=== PATIENT | male | born 1930 | race Caucasian/White ===

== ENCOUNTER 2017-07-15 12:24 | Outpatient (CLI) | payer MEDICARE, BC ==
[~2017-07-15] VITALS: Ht 167.6 cm; Wt 86.4 kg
--- NOTE | ~2017-07-15 | OP ---
PATIENT NAME: PIPO PRIETO MEDICAL RECORD: [id number] :[birth year] LOCATION:D.M2 D.2117 ADMISSION DATE:07/15/17 SURGEON: KEITH ROWELL MD DATE OF OPERATION: 07/15/2017 PROCEDURES: Left heart catheterization, selective coronary angiogram, right femoral artery approach. CATHETERS: A 5-Tajik sheath, 5/4 left and right Mak, 5/4 pig. The procedure was well tolerated and the patient was returned to worrell. Sheath was removed. ExoSeal device placed. Left ventriculography in 30-degree PAREDES view. Normal wall motion. Normal systolic function. CORONARY ANATOMY: LEFT MAIN: Left main is free of disease. LAD: Free of disease in the diagonal system. CIRCUMFLEX: Circumflex has one moderate-sized OM. 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 RIGHT CORONARY ARTERY: Right dominant system, free of disease. IMPRESSION AND PLAN: Intervention to the circumflex OM momentarily. The 5-Tajik sheath was exchanged for a 6-Tajik sheath. JL4 guiding catheter provided good guide catheter support followed by 300-cm Whisper wire was placed across the 90% plus stenosed OM down this portion of vessel. Stent deployed was a 2.5-mm Integrity nondrug-eluting stent up to 14 atmospheres for 45 seconds. Final injection shows excellent resolution of 90% stenosis. No significant residual. LINA flow was 3 throughout the procedure. Integrilin was used during the case. Sheath was closed with ExoSeal device. TRANSINT:[id number] Voice Confirmation ID: [id number] DOCUMENT ID: [id number] KEITH ROWELL MD at 0804 CC: [id number] DICTATION DATE: 07/15/17 1603 SOLDERING MACHINE OPERATOR AUTOMATIC: 07/15/17 1740 ADM IN [place] [address] [place] [address]
--- NOTE | ~2017-07-15 | HEMODYNAMI ---
PATIENT:PIPO PRIETO MEDICAL RECORD: [id number] : [birth year] LOCATION:[facility] D.2117 ADMISSION DATE: 07/15/17 Generatedon:07/15/201716:00 Patient name: PIPO PRIETO Patient #: [id number] SSN: : Date of study: 07/15/2017 Page: Of Hemodynamic Procedure Report Patient Data Patient Demographics Procedure consent was obtained First Name: PIPO Gender: Male Last Name: CONNER : 1930 Patient #: [id number] Age: 86 year(s) Race: Unknown Additional ID: [id number] Contact details Address: [address] [place] [address] [facility] State: [place] City: [place] Zip code: [address] Admission Admission Data Admission Date: 07/15/2017 Admission Time: 12:24 Room #: D.2117 Lab Results Lab Result Date: 07/15/2017 Lab Result Time: 0:00 Biochemistry Name Units Result Min Max BUN mg/dl 21 --(----)-* 7 18 Creatinine mg/dl 1 --(--*-)-- 0.6 1.3 CBC Name Units Result Min Max Hemoglobin g/dl 13.7 --(*---)-- 13.5 17.5 Procedure Procedure Types Cath Procedure Diagnostic Procedure [facility] w/Coronaries Sedation Charges Moderate Sedation up to 45 minutes PCI Procedure Coronary Stent Coronary Stent Initial Procedure Description Procedure Date Procedure Date: 07/15/2017 Procedure Start Time: 15:33 Procedure End Time: 15:52 Procedure Staff Name Function Otf Murguia MD Performing Physician Kirti Tai RT Monitor Nicolasa Goff RT Scrub Peter Crawford RN Nurse Procedure Data Cath Procedure Fluoroscopy Diagnostic fluoroscopy Total fluoroscopy Time: 4 time: 4 min min Diagnostic fluoroscopy Total fluoroscopy dose: 841 dose: 841 mGy mGy Contrast Material Contrast Material Type Amount (ml) Isovue 300 75 Entry Location Entry Primary Successful Side Size Upsize Upsize Entry Closure Succes sful Closure Location (Fr) 1 (Fr) 2 (Fr) Remarks Device Remarks Femoral Right 5 Fr 6 Fr Exoseal artery Short Estimated blood loss: 5 ml Diagnostic catheters Device Type Used For End Catheter Placement MULTIPACK JL 4.0 5Fr Left Coronary catheter Angiography MULTIPACK 3DRC 5Fr Right Coronary catheter Angiography MULTIPACK Pigtail 5 Fr LV Angiography catheter Procedure Complications No complications Procedure Medications Medication Administration Route Dosage Oxygen etCO2 Nasal cannula 2 l/min Heparin Flush Bag added to field 2 bags (1000units/500ml NS) 0.9% NaCl I.V. 100 ml/hr Fentanyl I.V. 50 mcg Versed I.V. 1 mg Fentanyl I.V. 50 mcg Versed I.V. 1 mg Fentanyl I.V. 50 mcg Versed I.V. 1 mg Fentanyl I.V. 50 mcg Versed I.V. 1 mg Fentanyl I.V. 50 mcg Heparin Bolus I.V. 4000 units Integrilin (Bolus I.V. 7.9 ml 2mg/ml) Fentanyl I.V. 50 mcg Integrilin (Bolus wasted 2.1 ml 2mg/ml) Plavix P.O. 600 mg Hemodynamics Rest HGB: 13.7 (g/dl) Heart Rate: 77 (bpm) Pressure Samples Time Site Value (mmHg) Purpose Heart Use Rate(bpm) 15:42 LV 101/-23,-3 Snapshot 84 15:42 AO 146/76(104) Pullback 85 15:42 LV 136/21,25 Pullback 85 Gradients Valve Time Site 1 Site 2 Mean SEP/DFP Peak To Heart Use (mmHg) (sec/min) Peak Rate (mmHg) (bpm) Aortic 15:42 LV AO 0 4 0 85 136/21,25 146/76(104) Calculations Valve P-P Mean Valve Index Valve Source Name Gradient Area Flow (cm2) Aortic 0 0 0 0 Snapshots Pre Cath Intra NCS Post Cath Vital Signs Time Heart Resp SPO2 etCO2 NIBP (mmHg) Rhythm Pain Sedation Rate (ipm) (%) (mmHg) Status Level (bpm) 14:07:15 75 17 98 0 150/87(120) NSR 0 (11) 10(A) , No pain 14:11:37 79 16 97 0 151/86(126) NSR 0 (11) 10(A) , No pain 14:15:57 75 18 97 0 160/93(122) NSR 0 (11) 10(A) , No pain 14:20:17 84 18 97 0 167/91(139) NSR 0 (11) 10(A) , No pain 14:24:39 90 16 97 0 166/102(135) NSR 0 (11) 10(A) , No pain 14:29:01 82 18 98 0 168/98(143) NSR 0 () 10(A) , No pain 14:33:19 84 16 98 0 166/98(136) NSR 0 () 10(A) , No pain 14:37:39 79 17 97 0 165/96(135) NSR 0 () 10(A) , No pain 14:41:58 84 17 91 0 142/85(117) NSR 0 () 10(A) , No pain 14:46:11 86 17 91 0 120/69(106) NSR 0 () 10(A) , No pain 14:50:24 87 16 93 0 131/71(109) NSR 0 () 10(A) , No pain 14:54:37 84 16 94 0 144/78(115) NSR 0 () 9(A) , No pain 14:58:54 88 16 94 0 134/78(109) NSR 0 () 9(A) , No pain 15:03:07 84 15 94 0 144/79(124) NSR 0 (11) 9(A) , No pain 15:07:19 80 15 95 0 137/84(111) NSR 0 () 9(A) , No pain 15:11:35 84 17 95 0 138/78(105) NSR 0 (11) 9(A) , No pain 15:15:53 77 15 95 0 151/72(118) NSR 0 (11) 9(A) , No pain 15:20:03 82 16 94 0 109/60(83) NSR 0 (11) 9(A) , No pain 15:24:07 88 16 94 0 118/81(96) NSR 0 (11) 9(A) , No pain 15:28:15 81 16 96 0 132/80(109) NSR 0 (11) 9(A) , No pain 15:32:27 79 16 96 0 141/84(113) NSR 0 (11) 9(A) , No pain 15:36:43 79 16 96 0 151/77(126) NSR 0 (11) 9(A) , No pain 15:40:55 84 16 97 0 133/77(114) NSR 0 (11) 9(A) , No pain 15:45:07 81 17 95 0 120/69(101) NSR 0 (11) 9(A) , No pain 15:49:19 88 17 89 0 102/59(85) NSR 0 (11) 9(A) , No pain Medications Time Medication Route Dose Verified Delivered Reason Notes Effectiveness by by 14:52:20 Oxygen etCO2 2 Otf Buffie Per physician Nasal l/min [facility] Casimiro Guerrier RN cannula 14:52:28 Heparin Flush added 2 Otf Buffie used for Bag to bags [facility] Casimiro Guerrier RN procedure (1000units/500ml field NS) 14:52:38 0.9% NaCl I.V. 100 Otf Hillie Per physician ml/hr [facility] Casimiro Guerrier RN, MD 14:52:51 Fentanyl I.V. 50 Otf Lizie for sedation mcg [facility] Casimiro Guerrier RN, MD 14:52:57 Versed I.V. 1 mg Otf Buffie for sedation [facility] Casimiro Guerrier RN, MD 14:54:56 Fentanyl I.V. 50 Otf Buffie for sedation mcg [facility] Casimiro Guerrier RN, MD 14:54:59 Versed I.V. 1 mg Otf Buffie for sedation [facility] Casimiro Guerrier RN, MD 15:14:47 Fentanyl I.V. 50 Otf Buffie for sedation mcg [facility] Casimiro Guerrier RN, MD 15:14:53 Versed I.V. 1 mg Otf Buffie for sedation [facility] Casimiro Guerrier RN, MD 15:25:03 Fentanyl I.V. 50 Otf Buffie for sedation mcg [facility] Casimiro Guerrier RN, MD 15:25:06 Versed I.V. 1 mg Otf Buffie for sedation [facility] Casimiro Guerrier RN, MD 15:33:34 Fentanyl I.V. 50 Otf Buffie for sedation mcg [facility] Casimiro Guerrier RN, MD 15:44:09 Heparin Bolus I.V. 4000 [address] for units [facility] Casimiro huffman MD 15:44:20 Integrilin I.V. 7.9 Otf Green for (Bolus 2mg/ml) ml [facility] Casimiro Crawford RN antiplatelet MD therapy 15:47:11 Fentanyl I.V. 50 Otf Green for sedation mcg [facility] Casimiro Crawford RN, MD 15:59:44 Integrilin wasted 2.1 Otf Green for (Bolus 2mg/ml) ml [facility] Casimiro Crawford RN antiplatelet MD therapy 15:59:53 Plavix P.O. 600 Otf Green for mg [facility] Casimiro Crawford RN antiplatelet MD therapy Procedure Log Time Note 13:40:13 Kirti Tai RT(R) sent for patient. Start room use. 13:59:14 Time tracking: Regular hours (M-F 7:00 - 5:00) 13:59:18 Plan of Care:Hemodynamics will remain stable., Cardiac rhythm will remain stable., Comfort level will be maintained., Respiratory function will remain adequate., Patient/ family verbilizes understanding of procedure., Procedure tolerated without complication., Recovers from procedure without complications.. 13:59:37 Patient received from Med II to [facility] 2 Alert and oriented. Tansferred to table in Supine position. 13:59:38 Warm blankets applied, and ezra hugger turned on for patient comfort. 13:59:39 Correct patient and procedure confirmed by team. 13:59:40 Signed procedure consent form obtained from patient. 13:59:41 ECG and BP/O2 sat monitors applied to patient. 13:59:41 Vital chart was started 13:59:43 Baseline sample Acquired. 13:59:52 Rhythm: atrial fibrillation 13:59:54 Full Disclosure recording started 14:00:07 H&P Date Dictated: 07/15/2017 New H&P dictated by physician.. 14:00:08 Pre-procedure instructions explained to patient. 14:00:09 Pre-op teaching completed and patient verbalized understanding. 14:00:10 Family in waiting room. 14:00:11 Patient NPO since Dinner. 14:00:14 Is the patient allergic to Iodine/contrast media? No. 14:00:15 Was the patient premedicated? No 14:00:17 Is patient on blood thinner?Yes 14:00:20 ACC The patient was administered the following blood thiners within the last 24 hours: Coumadin 14:00:28 Patient diabetic? No. 14:00:30 Previous problem with sedation/anesthesia? No ? 14:00:32 Snore? Yes 14:00:34 Sleep apnea? No 14:00:37 Deviated septum? No 14:00:38 Opens mouth fully? Yes 14:00:38 Sticks out tongue? Yes 14:00:40 Airway obstruction? No ? 14:00:46 Dentures? Yes in tight 14:00:57 Patient pain scale 0/10 ?. 14:01:11 IV patent on arrival in right wrist with 0.9% NaCl at [facility]. 14:01:16 Lab results completed and on chart. 14:01:23 Right groin area was prepped with chlora-prep and draped in sterile fashion 14::24 Alarms reviewed by R. N. 14::24 Sharps counted by scrub and verified by R.N. 14::54 Lab Result : BUN 21 mg/dl 14::54 Lab Result : Hemoglobin 13.7 g/dl 14:11:54 Lab Result : Creatinine 1 mg/dl 14:52:04 Physician arrived 14:52:05 --------ALL STOP TIME OUT------ 14:52:05 Final Timeout: patient, procedure, and site verified with staff and physician. All members of the team are in agreement. 14:52:07 Right groin site verified by team. 14:52:09 Physical assessment completed. ASA score P 2 - A patient with mild systemic disease as per Otf Murguia MD. 14:52:12 Sedation plan: IV Moderate Sedation Medication:Versed, Fentanyl 14:52:20 Oxygen 2 l/min etCO2 Nasal cannula was administered by Diamond Guerrier RN; Per physician; 14:52:22 Use device set Femoral Dx 14:52:23 ACIST Syringe (32792) opened to sterile field. 14:52:24 Bag Decanter (2002) opened to sterile field. 14:52:24 Medline Cath Pack ([id number]) opened to sterile field. 14:52:25 DIAGNOSTIC WIRE .035 260cm J wire (469456) opened to sterile field. 14:52:26 ACIST Hand Control (62645) opened to sterile field. 14:52:26 ACIST Manifold (59069) opened to sterile field. 14:52:27 DIAGNOSTIC Multipack 5Fr catheter set (OB0108) opened to sterile field. 14:52:28 Heparin Flush Bag (1000units/500ml NS) 2 bags added to field was administered by Diamond Guerrier RN; used for procedure; 14:52:28 Tegaderm 4 x 4 (1626W) opened to sterile field. 14:52:29 SHEATH Prelude 5Fr 0.035 ([id number]-6X-03-035) opened to sterile field. 14:52:38 0.9% NaCl 100 ml/hr I.V. was administered by Diamond Guerrier RN; Per physician; 14:52:51 Fentanyl 50 mcg I.V. was administered by Diamond Guerrier RN; for sedation; 14:52:57 Versed 1 mg I.V. was administered by Diamond Guerrier RN; for sedation; 14:54:56 Fentanyl 50 mcg I.V. was administered by Diamond Guerrier RN; for sedation; 14:54:59 Versed 1 mg I.V. was administered by Diamond Guerrier RN; for sedation; 15:14:47 Fentanyl 50 mcg I.V. was administered by Diamond Guerrier RN; for sedation; 15:14:53 Versed 1 mg I.V. was administered by Diamond Guerrier RN; for sedation; 15:25:03 Fentanyl 50 mcg I.V. was administered by Diamond Guerrier RN; for sedation; 15:25:06 Versed 1 mg I.V. was administered by Diamond Guerrier RN; for sedation; 15:33:01 Procedure started. 15:33:05 Local anesthetic to right femoral artery with Lidocaine 2% by Otf Murguia MD.INITIAL ACCESS ONLY 15:33:34 Fentanyl 50 mcg I.V. was administered by Diamond Guerrier RN; for sedation; 15:34:00 Zero performed for pressure channel P1 15:34:06 A 5 Fr sheath was inserted into the Right Femoral artery 15:34:06 Zero performed for pressure channel P1 15:35:11 A MULTIPACK JL 4.0 5Fr catheter was advanced over the wire and used for Left Coronary Angiography. 15:37:04 LCA angiography performed. 15:37:07 Injector settings: Ml/sec: 3, Volume: 6, 15:38:17 Catheter removed. 15:38:25 A MULTIPACK 3DRC 5Fr catheter was advanced over the wire and used for Right Coronary Angiography. 15:39:22 RCA angiography performed. 15:39:25 Injector settings: Ml/sec: 3, Volume: 6, 15:39:40 SHEATH 6Fr Prelude ([id number]) opened to sterile field. 15:39:52 Catheter removed. 15:40:13 GUIDE 6FR JL 4.0 catheter (OH1NB44) opened to sterile field. 15:40:13 INFLATOR Merit BasixCompak (ZE4606) opened to sterile field. 15:40:42 A MULTIPACK Pigtail 5 Fr catheter was advanced over the wire and used for LV Angiography. 15:40:55 WHISPER 300cm guide wire ([id number]) opened to sterile field. 15:42:07 LV hemodynamics recorded. 15:42:08 LV gram done using PAREDES 15:42:18 Injector settings: Ml/sec: 5, Volume: 15, 15:42:25 EF : 55 % 15:42:33 Catheter removed. 15:42:33 Proceeding to intervention. 15:43:22 Sheath upsized to a 6 Fr Short. 15:43:45 6 Fr jl 4 guide catheter was inserted over the wire 15:44:09 Heparin Bolus 4000 units I.V. was administered by Peter Crawford RN; for anticoagulation; 15:44:20 Integrilin (Bolus 2mg/ml) 7.9 ml I.V. was administered by Peter Crawford RN; for antiplatelet therapy; 15:45:13 bmw wire advanced. 15:47:11 Fentanyl 50 mcg I.V. was administered by Peter Crawford RN; for sedation; 15:48:49 Place stent Inflation Number: 1 A INTEGRITY OTW 2.25 X 12 stent ([id number]) was prepped and advanced across the 1st Ob Cyn. The stent was deployed at 14 ASHLIE for 0:30 (min:sec). 15:49:51 Inflation number: 2 The stent balloon was then re-inflated across the 1st Ob Cyn to 8 ASHLIE for 0:30 (min:sec). 15:50:24 Stent catheter was removed intact over wire. 15:50:25 Wire removed. 15:50:25 Guide catheter removed. 15:50:34 EXOSEAL 6Fr (EX600) opened to sterile field. 15:50:46 Sheath removed intact; hemostasis achieved with Exoseal to the Right Femoral artery. 15:50:47 Procedure ended.(Physican Out) 15:51:40 Fluoroscopy time 04.00 minutes. 15:51:44 Fluoroscopy dose: 841 mGy 15:51:44 Flurop Dose total: 841 15:51:48 Contrast amount:Isovue 300 75ml. 15:51:49 Sharps counted by scrub and verified by R.N. 15:51:51 Insertion/operative site no bleeding no hematoma. 15:51:54 Post-op/insertion site Right Femoral artery dressed using a 4 x 4 and Tegaderm. 15:51:57 Post right femoral artery:stable 15:51:58 Post Procedure Pulses reassessed and unchanged 15:52:01 Post procedure rhythm: unchanged. 15:52:03 Estimated blood loss: 5 ml 15:52:05 Post procedure instruction explained to patient.Patient verbalizes understanding. 15:52:05 Patient needs reinforcement of post procedure teaching. 15:52:22 Procedure type changed to Cath procedure, Diagnostic procedure, LHC, LHC w/Coronaries, Sedation Charges, Moderate Sedation up to 45 minutes, PCI procedure, Coronary Stent, Coronary Stent Initial 15:52:24 Procedure and supply charges have been captured, reviewed, submitted and are correct. 15:52:29 Procedure Complication : No complications 15:52:32 Vital chart was stopped 15:52:33 See physician's report for complete and final results. 15:52:35 Report given to Pre/Post Procedure Room. 15:52:39 Patient transfered to Pre/Post Procedure Room with Stretcher. 15:52:43 Procedure ended. 15:52:43 Full Disclosure recording stopped 15:53:04 ACC-PCI Only Patient was given prescriptions, or instructed by Otf Murguia MD to start/continue the following medications upon discharge: Plavix 15:53:06 End room use (Document Last) 15:59:44 Integrilin (Bolus 2mg/ml) 2.1 ml wasted was administered by Peter Crawford RN; for antiplatelet therapy; 15:59:53 Plavix 600 mg P.O. was administered by Peter Crawford RN; for antiplatelet therapy; Intervention Summary Intervention Notes Time ActionType Lesion and Equipment Action# Pressure Duration Attributes Used 15:48:49 Place stent 1st Ob Cyn INTEGRITY 1 14 00:30 OTW 2.25 X 12 stent ([id number]) 15:49:51 Reinflate 1st Ob Cyn INTEGRITY 2 8 00:30 stent OTW 2.25 X balloon 12 stent ([id number]) Device Usage Item Name Manufacture Quantity Catalog Number Hospital Part Current M inimal Lot# / Charge Number Stock Stock Serial# Code ACIST Syringe Acist 1 31675 242559 393407 [id number] 2 0 (10749) Medical Systems Inc Bag Decanter Microtek 1 977058 47651 943707 5 () Medical Inc. Medline Cath Cardinal 1 [id number] 160410 04818 787775 5 IntelGenX Health ([id number]) DIAGNOSTIC WIRE St Danny 1 880906 448488 945464 662860 3 0 .035 260cm J wire (886924) ACIST Hand Acist 1 32432 530223 377460 165757 5 Control (06992) Medical Systems Inc ACIST Manifold Acist 1 86562 115426 014527 446848 5 (57275) Medical Systems M[employer] Solutions DIAGNOSTIC Cardinal 1 KR0030 959864 42225 795376 3 0 Multipack 5Fr Health catheter set (XK6510) Tegaderm 4 x 4 3M 1 1626W 843235 305430 054523 5 (1626W) SHEATH Prelude Merit 1 [id number]-7E-12-035 879289 322299 294636 5 5Fr 0.035 Medical (PVP-9S-61-035) MULTIPACK JL Cardinal 1 515655 5 4.0 5Fr Health catheter MULTIPACK 3DRC Cardinal 1 563765 5 5Fr catheter Health SHEATH 6Fr Merit 1 [id number] 734712 255025 467821 5 Prelude Medical ([id number]) GUIDE 6FR JL Medtronic 1 [id number] 834019 29434 881172 1 4.0 catheter ([id number]) INFLATOR Merit Merit 1 KA0735 392967 424114 149548 1 5 [employer] Medical (PP4492) MULTIPACK Cardinal 1 526486 5 Pigtail 5 Fr Health catheter WHISPER 300cm Jernigan 1 [id number] 713138 442919 998986 5 guide wire Vascular ([id number]) INTEGRITY OTW Medtronic 1 [id number] 929387 915393 5 [id number] 2.25 X 12 stent ([id number]) EXOSEAL 6Fr Cardinal 1 EX600 368381 722475 106890 1 0 (EX600) Health Signature Audit [place] Stage Time Signature Unsigned Intra-Procedure 07/15/2017 Kirti Tai 4:00:50 PM RT(R) Signatures Monitor : Kirti Tai RT Signature : Date : Time : [place] [id number] [place] [address]
--- NOTE | ~2017-07-15 | HP ---
PATIENT: PIPO PRIETO MEDICAL RECORD: [id number] ACCOUNT: [id number] LOCATION:[facility].2116 : [birth year] ADMISSION DATE: 07/15/17 HISTORY AND PHYSICAL EXAMINATION HISTORY OF PRESENT ILLNESS: An 86-year-old gentleman with a history of chronic atrial fibrillation followed by Dr. Norman, has a history of hypertension, extremely active for age, is out actually tilling, began having also chest pressure classic for angina, found to have positive enzymes, ST-T changes inferolaterally, referred here for NSTEMI. PAST MEDICAL HISTORY: Includes: 1. History of atrial fibrillation. 2. Hypertension. 3. Dyslipidemia. 4. Hypothyroidism with replacement. ALLERGIES: None known. MEDICATIONS: Include Synthroid 75 mcg every day, Lasix 40 every day, lisinopril 10 every day, warfarin per scale. SOCIAL HISTORY: , lives outside of [place], nonsmoker. Actually works in the garden, etc despite being 86 years of age. REVIEW OF SYSTEMS: The patient reports easy bruising but reports no swollen glands. The patient reports no fever, no night sweats, no significant weight gain, no significant weight loss. No significant exercise tolerance. The patient reports no dry eyes, no irritation, no vision change. Patient reports no difficulty hearing and no ear pain. Patient reports no frequent nose bleeds or nose and sinus problems. Patient reports on arm pain on exertion. No shortness of breath while lying down. No history of heart murmur. Patient reports no cough, no wheezing or coughing up blood. Patient reports no abdominal pain, no vomiting. Normal appetite. No diarrhea and not vomiting blood. No nausea and no constipation. Patient reports no incontinence. No difficulty urinating. No hematuria. No increased frequency. Patient reports no muscle aches. No weakness, no arthralgias, no back pain. No swelling of the extremities. Patient reports no abnormal mole, no jaundice, no rashes. Reports no loss of consciousness. No weakness and no numbness. No seizures, dizziness, or headaches. The patient reports no depression, no sleep disturbance, feeling safe in a relationship and no alcohol abuse. Patient reports on fatigue. Reports no runny nose or sinus pressure. No itching, no hives, and no frequent sneezing. PHYSICAL EXAMINATION: GENERAL: Pleasant gentleman in no acute distress. VITAL SIGNS: Pulse 78 and regular, blood pressure 127/64. HEENT: Normocephalic, atraumatic. NECK: No bruits noted. HEART: Irregular, rate is controlled, a II/ systolic ejection murmur. LUNGS: Good air excursion. ABDOMEN: Soft, nontender. EXTREMITIES: Pulses 2+ with no edema. DIAGNOSTIC DATA: ECG shows nonspecific ST-T changes inferiorly. HISTORY AND PHYSICAL [id number] PIPO PRIETO IMPRESSION: NSTEMI, atrial fibrillation. PLAN: For angiography, intervention based on the above. TRANSINT:[id number] Voice Confirmation ID: [id number] DOCUMENT ID: [id number] KEITH ROWELL MD at 0804 CC: [id number] DICTATION DATE: 07/15/17 1307 DIRECT CASTING OPERATOR: 07/15/17 1325 ADM IN [place] [address] [place] [address]
--- NOTE | ~2017-07-15 | DS ---
PATIENT:PIPO PRIETO :[birth year] MEDICAL RECORD: [id number] DISCHARGE SUMMARY ADMISSION DATE: 07/15/17 DISCHARGE DATE: 07/16/17 DATE OF ADMISSION: 07/15/2017. DATE OF DISCHARGE: 07/16/2017. PROBLEM LIST: 1. Non-ST elevation myocardial infarction. 2. Hypertension. 3. Atrial fibrillation, chronic, on Coumadin CVA prophylaxis. BRIEF HISTORY AND HOSPITAL COURSE: Transferred from [place], non-ST elevation myocardial infarction, found to have isolated circ disease, underwent stenting, did well. Discharged home in good condition. ACTIVITY: As tolerated. DIET: AHA diet. Plavix for a month. We restarted his Coumadin at his regular dose. See him back in the office in a month for followup. TRANSINT:[id number] Voice Confirmation ID: [id number] DOCUMENT ID: [id number] KEITH ROWELL MD at 1214 CC: [id number] DICTATION DATE: 07/16/17 0831 TOOL PLANNER: 07/16/17 1419 DEP CLI 07/16/17 [place] [address] [place] [address]
[2017-07-15 12:43] VITALS: BP 168/79; Ht 167.6 cm; Wt 86.4 kg
[2017-07-15] MEDS ORDERED: COUMADIN5 MG PO (12:47)
[2017-07-15] MEDS ORDERED: LISINOPRIL10 MG PO (12:48)
[2017-07-15] MEDS ORDERED: COUMADIN2.5 MG PO (12:48)
[2017-07-15] MEDS ORDERED: K-DUR20 MEQ PO (12:49)
[2017-07-15] MEDS ORDERED: SYNTHROID75 MCG PO (12:49)
[2017-07-15] MEDS ORDERED: LASIX40 MG PO (12:49)
[2017-07-15] MEDS ORDERED: MULTIPLE VITAMI1 TA1 PO (12:50)
[2017-07-15] MEDS ORDERED: ULTRAM50 MG PO (12:51)
[2017-07-15 16:44] VITALS: BP 158/77
[2017-07-15 17:27] LABS: BASOPHILS 0.7 % (0-2); EOSINOPHILS 3.3 % (0-7); HEMATOCRIT 36.4 % (42.0-54.0); IMMATURE GRANULOCYTES 0.2 % (0-5); LYMPHOCYTES 28.1 % (15-50); MCH 31.3 pg (26.0-34.0); MCV 94.8 fL (80.0-100.0); MEAN PLATELET VOLUME 11.4 fL (7.4-10.4); MONOCYTES 8.5 % (2-11); NEUTROPHILS 59.2 % (40-80); PLATELET COUNT 137 10x3/uL (130-400); RBC 3.84 10x6/uL (4.20-6.10); RDW 13.9 % (11.5-14.5); WBC 5.5 10x3/uL (4.8-10.8)
[2017-07-15 17:46] LABS: CALC OSMOLALITY 279 mosm/kg (275-300); CALCIUM 8.1 mg/dL (8.5-10.1); CHLORIDE - SERUM 108 mmol/L (98-107); CREATININE - SERUM 0.8 mg/dL (0.6-1.3); GLUCOSE 102 mg/dL (74-106); POTASSIUM - SERUM 4.1 mmol/L (3.5-5.1); SODIUM 139 mmol/L (136-145); UREA NITROGEN 17 mg/dL (7-18); eGFR NON AFRICAN AMERICAN > 90 mL/min (90-120)
[2017-07-15 17:52] LABS: CARBON DIOXIDE 20.2 mmol/L (21.0-32.0)
[2017-07-15 21:06] VITALS: BP 151/81
[2017-07-16 01:46] VITALS: BP 148/71
[2017-07-16 05:40] VITALS: BP 175/86
[2017-07-16 08:33] VITALS: BP 159/78
[2017-07-16] MEDS ORDERED: PLAVIX75 MG PO (08:59)
== END 2017-07-16 09:54 | disposition home or self-care (01) ==
LOC: OBSVTIME → D.M2 12:24 → D.CATH 12:24 → D.M2 12:24 → OBSVTIME 12:24 → D.CATH 07-16 09:54 → D.M2 07-16 09:54
PROVIDERS: Internal Medicine Interventional Cardiology
DX: I21.4 Non-ST elevation (NSTEMI) myocardial infarction (principal); I48.2 Chronic atrial fibrillation; I10 Essential (primary) hypertension; Z79.01 Long term (current) use of anticoagulants; E78.5 Hyperlipidemia, unspecified; E03.9 Hypothyroidism, unspecified